=== PATIENT | female | born 1945 ===

== ENCOUNTER 2021-01-20 22:02 | Emergency (ER) | payer OTHER ==
--- NOTE | 2021-01-20 22:49 | ER ---
Nurse's Notes [facility] Name: Gwendolyn Morel Age: 75 yrs Sex: Female : 1945 Arrival Date: 01/20/2021 Time: 22:06 Bed Waiting Private MD: Diagnosis: ED Course: 01/20 22:06 Patient arrived in ED. bp1 Administered Medications: No medications were administered Outcome: 22:49 Patient left the ED. ld1 Signatures: Grace Cramer bp1 Vira Coronado, RN RN ld1
== END 2021-01-20 22:49 | disposition left against medical advice (07) ==
LOC: ER 22:02
DX: Z02.9 Encounter for administrative examinations, unspecified (principal)

== ENCOUNTER 2021-01-22 18:58 | Inpatient (IN) | payer OTHER ==
[2021-01-22 21:07] LABS: Absolute Lymphocytes (CBC) 1.8 K/uL (0.7-4.9); Basophils % 1.2 % (0-1.3); Hematocrit 35.8 % (36.0-45.0); Lymphocytes % 25.1 % (15.3-44.8); MPV 7.2 fL (7.6-11.3)
[2021-01-22 21:10] LABS: Protime INR 0.95
[2021-01-22] MEDS ORDERED: LIDOCAINE VISCOUS 2% SOLN 15 ML UDC ONE (21:13)
[2021-01-22] MEDS ORDERED: MAGNES/ALUMIN/SIMET 30ML UCUP ONE (21:13)
[2021-01-22 21:25] LABS: ALT/SGPT 16 U/L (12-78); AST/SGOT 18 U/L (15-37); Albumin 3.2 g/dL (3.4-5.0); Alkaline Phosphatase 81 U/L (45-117); BUN Blood Urea Nitrogen 29 mg/dL (7-18); Bicarbonate 23 mmol/L (21-32); Bilirubin Direct < 0.1 mg/dL (0-0.2); Bilirubin Total 0.3 mg/dL (0.2-1.0); Glucose Level 101 mg/dL (74-106); Lipase 232 U/L (73-393); Magnesium 2.6 mg/dL (1.8-2.4); Potassium 4.4 mmol/L (3.5-5.1); Protein, Total 7.3 g/dL (6.4-8.2); Sodium Level 143 mmol/L (136-145)
[2021-01-22 21:26] LABS: NT PRO-BNP 576 pg/mL (<450); Troponin (Emerg Dept Use Only) < 0.02 ng/mL (0.0-0.045)
--- NOTE | 2021-01-22 21:52 | RAD REPORT ---
EXAM DESCRIPTION: RAD - Chest Single View - 01/22/2021 9:35 pm CLINICAL HISTORY: upper abdomen pain Chest pain. COMPARISON: Chest Single View dated 01/27/2016 FINDINGS: Portable technique limits examination quality. The lungs are mildly emphysematous but grossly clear. The heart is normal in size. No displaced fract ures. IMPRESSION: No acute intrathoracic process suspected.
--- NOTE | 2021-01-22 23:25 | EDPHYS ---
Physician Documentation [facility] Name: Gwendolyn Morel Age: 75 yrs Sex: Female : 1945 Arrival Date: 01/22/2021 Time: 19:02 Bed 25 Private MD: ED Physician Sahil Johnson HPI: 01/22 20:45 This 75 yrs old Female presents to ER via Wheelchair with complaints of Epigastric Pain.cp 20:45 The patient presents with abdominal pain in the upper abdomen. cp 20:45 Onset: The symptoms/episode began/occurred 3 day(s) ago. The symptoms do not radiate. cp Associated signs and symptoms: Pertinent positives: nausea and vomiting, Pertinent negatives: chest pain, constipation, diarrhea, fever. Historical: - Allergies: 19:34 No Known Allergies; vg1 - Home Meds: 19:34 levothyroxine oral [Active]; Mirtazapine Oral [Active]; pantoprazole oral [Active]; vg1 - PMHx: 19:34 stomach hernia; Gastritis; vg1 - PSHx: 19:34 None; vg1 - Immunization history:: Client reports receiving the 2nd dose of the Covid vaccine. - Social history:: Smoking status: Patient denies any tobacco usage or history of. ROS: 20:50 Constitutional: Negative for body aches, chills, fever, poor PO intake. cp 20:50 Eyes: Negative for injury, pain, redness, and discharge. cp 20:50 ENT: Negative for ear pain, sore throat, difficulty swallowing, difficulty handling secretions. 20:50 Cardiovascular: Negative for chest pain, palpitations. 20:50 Respiratory: Negative for cough, shortness of breath, wheezing. 20:50 Abdomen/GI: Positive for abdominal pain, nausea and vomiting, Negative for diarrhea, constipation, hematemesis, black/tarry stool, rectal bleeding. 20:50 Back: Negative for radiated pain. 20:50 : Negative for urinary symptoms. 20:50 Neuro: Negative for altered mental status, dizziness, syncope, weakness. 20:50 All other systems are negative. Exam: 20:55 Constitutional: The patient appears in no acute distress, alert, awake, cp non-diaphoretic, non-toxic, well developed, well nourished, uncomfortable. 20:55 Head/Face: Normocephalic, atraumatic. cp 20:55 Eyes: Periorbital structures: appear normal, Conjunctiva: normal, no exudate, no injection, Sclera: no appreciated abnormality, Lids and lashes: appear normal, bilaterally. 20:55 ENT: External ear(s): are unremarkable, Nose: is normal, Mouth: Lips: moist, Oral mucosa: moist, Posterior pharynx: Airway: no evidence of obstruction, patent. 20:55 Chest/axilla: Inspection: normal, Palpation: is normal, no crepitus, no tenderness. 20:55 Cardiovascular: Rate: normal, Rhythm: regular, Edema: is not appreciated, JVD: is not appreciated. 20:55 Respiratory: the patient does not display signs of respiratory distress, Respirations: normal, no use of accessory muscles, no retractions, labored breathing, is not present, Breath sounds: are clear throughout, no decreased breath sounds, no stridor, no wheezing. 20:55 Abdomen/GI: Inspection: abdomen appears normal, Bowel sounds: active, all quadrants, Palpation: soft, in all quadrants, moderate abdominal tenderness, in the epigastric area, right upper quadrant and left upper quadrant, rebound tenderness, is not appreciated, voluntary guarding, is not appreciated, involuntary guarding, is not appreciated. 20:55 Back: pain, is absent, ROM is normal. 20:55 Skin: no rash present. 20:55 Neuro: Orientation: to person, place \\T\\ time. Mentation: is normal, Motor: moves all fours, strength is normal, Sensation: is normal. 21:25 ECG was reviewed by the Attending Physician. cp Vital Signs: 19:29 BP 134 / 72; Pulse 83; Resp 18; Temp 98.1; Pulse Ox 100% ; Weight 49.9 kg; Height 5 ft. vg1 1 in. (154.94 cm); Pain 10/10; 21:25 BP 178 / 75; Pulse 61; Resp 18; Pulse Ox 99% on R/A; em 01/23 02:13 BP 168 / 85; Pulse 58; Resp 18; Pulse Ox 99% on R/A; em 01/22 19:29 Body Mass Index 20.78 (49.90 kg, 154.94 cm) vg1 MDM: 01/22 20:20 Patient medically screened. cp 23:30 Data reviewed: vital signs, nurses notes, lab test result(s), EKG, radiologic studies, cp CT scan. 23:30 Test interpretation: by ED physician or midlevel provider: ECG, plain radiologic cp studies. Counseling: I had a detailed discussion with the patient and/or guardian regarding: the historical points, exam findings, and any diagnostic results supporting the discharge/admit diagnosis, lab results, radiology results, the need for further work-up and treatment in the hospital. Response to treatment: the patient's symptoms have markedly improved after treatment, and as a result, I will admit patient. Physician consultation: Marco Traore MD was contacted at 23:20, regarding admission, to the telemetry unit. patient's condition. Admission orders: after a detailed discussion of the patient's condition and case, the admit orders are written by me. 01/22 20:29 Order name: Basic Metabolic Panel; Complete Time: 21:35 cp 01/22 21:35 Interpretation: Normal except: CL 112; BUN 29; CRE 1.37; GFR 38. cp 01/22 20:29 Order name: CBC with Diff; Complete Time: 21:35 cp 01/22 21:35 Interpretation: Normal except: HGB 11.7; HCT 35.8; MPV 7.2; EOSINOPHIL % 5.5. cp 01/22 20:29 Order name: LFT's; Complete Time: 21:35 cp 01/22 20:29 Order name: Magnesium; Complete Time: 21:35 cp 01/22 20:29 Order name: NT PRO-BNP; Complete Time: 21:35 cp 01/22 20:29 Order name: PT-INR; Complete Time: 21:35 cp 01/22 20:29 Order name: Troponin (emerg Dept Use Only); Complete Time: 21:35 cp 01/22 20:29 Order name: Lipase; Complete Time: 21:35 cp 01/22 21:38 Order name: Urine Microscopic Only cp 01/22 23:32 Order name: Basic Metabolic Panel EDMS 01/22 23:32 Order name: Basic Metabolic Panel EDMS 01/22 23:32 Order name: CBC with Automated Diff EDMS 01/22 23:32 Order name: CBC with Automated Diff EDMS 01/22 20:29 Order name: XRAY Chest (1 view); Complete Time: 22:09 cp 01/22 21:38 Order name: CT Abd/Pelvis - Without Contrast cp 01/22 23:07 Order name: US Abdomen Limited: RUQ cp 01/22 23:32 Order name: Lipase [facility] 01/22 23:32 Order name: Lipase [facility] 01/22 23:32 Order name: Liver (Hepatic) Function EDMS 01/22 23:33 Order name: Liver (Hepatic) Function [facility] 01/22 23:33 Order name: SARS-COV-2 RT PCR [facility] 01/23 01:08 Order name: COVID-19 (Coronavirus) Document "Date of Onset" if Symptomatic em 01/23 01:23 Order name: CORONAVIRUS [facility] 01/23 02:27 Order name: SARS-COV-2 RT PCR [facility] 01/23 02:49 Order name: COVID-19 (Coronavirus) Document "Date of Onset" if Symptomatic mw2 01/23 02:55 Order name: CORONAVIRUS [facility] 01/23 03:37 Order name: SARS-COV-2 RT PCR [facility] 01/23 07:57 Order name: US [facility] 01/23 11:34 Order name: Urine Dipstick-Ancillary [facility] 01/22 20:29 Order name: EKG; Complete Time: 20:30 cp 01/22 20:29 Order name: Cardiac monitoring; Complete Time: 21:29 cp 01/22 20:29 Order name: EKG - Nurse/Tech; Complete Time: 21:29 cp 01/22 20:29 Order name: IV Saline Lock; Complete Time: 21:29 cp 01/22 20:29 Order name: Labs collected and sent; Complete Time: 21:29 cp 01/22 20:29 Order name: O2 Per Protocol; Complete Time: 21:28 cp 01/22 20:29 Order name: O2 Sat Monitoring; Complete Time: 21:28 cp 01/22 21:38 Order name: Urine Dipstick-Ancillary (obtain specimen); Complete Time: 11:43 cp 01/22 23:25 Order name: NPO; Complete Time: 23:29 cp 01/22 23:32 Order name: NPO EDMS EC:25 Rate is 61 beats/min. Rhythm is regular. MT interval is normal. QRS interval is normal. cp QT interval is normal. T waves are Inverted in lead aVR. Interpreted by me. Reviewed by me. Administered Medications: 21:47 Drug: GI Cocktail without - (Maalox Suspension 30 ml, Lidocaine Liquid 2 % 15 em ml) Route: PO; 23:21 Follow up: Response: No adverse reaction em 01/23 00:07 Drug: Zosyn (piperacillin-tazobactam) 3.375 grams Route: IVPB; Infused Over: 60 mins; em Site: right forearm; 02:30 Follow up: IV Status: Completed infusion; IV Intake: 100ml em 05:43 Not Given (0/10 painn): morphine 2 mg IVP once; (PAIN>8) RASS on ADMN: Combtv4, Very em Agttd3, Agttd2, Rstlss1, AlertClm0, Drwsy-1, LtSdtn-2, ModSdtn-3, DpSdtn-4, UnArsble-5 x2 Disposition: 19:09 Co-signature as Attending Physician, Sahil Johnson MD. 7 Disposition Summary: 01/22/21 23:24 Hospitalization Ordered Hospitalization Status: Inpatient Admission cp Provider: Marco Traore cp Condition: Stable cp Problem: new cp Symptoms: have improved cp Bed/Room Type: Standard cp Location: Telemetry/MedSurg (Inpatient)(01/23/21 13:25) bd Room Assignment: 216(01/23/21 13:25) bd Diagnosis - Calculus of gallbladder with acute cholecystitis without obstruction cp Forms: - Medication Reconciliation Form cp - SBAR form cp Signatures: Dispatcher [employer] [facility] Mariama Marmolejo Hermelinda Kc RN RN Syd Garcia RN RN em Hunter Vu, HAND VIOLIN MAKER-C HAND VIOLIN MAKER-Cla1 John Pepe PA PA cp Garcia, Victoria, RN RN vg1 Sahil Johnson MD MD mh7 Corrections: (The following items were deleted from the chart) 01/22 23:32 23:22 CORONAVIRUS+ ordered. [facility] 01/23 00:36 01/22 23:24 Telemetry/MedSurg (Inpatient) [facility] 01/23 00:36 01/22 23:24 [facility] 01/23 02:58 00:36 Intensive Care Unit mw mw 02:58 00:36 7- mw mw 13:25 02:58 [facility] ER HOLD mw bd 13:25 02:58 ERHOLD- mw bd
--- NOTE | 2021-01-22 23:25 | ER ---
Nurse's Notes [facility] Name: Gwendolyn Morel Age: 75 yrs Sex: Female : 1945 Arrival Date: 01/22/2021 Time: 19:02 Bed 25 Private MD: Diagnosis: Calculus of gallbladder with acute cholecystitis without obstruction Presentation: 01/22 19:29 Chief complaint: Patient's son or daughter states: Upper ABD pain that began on vg1 01/20/21. [place] denies diarrhea. Last BM was today, pt states normal. Coronavirus screen: Vaccine status: Patient reports receiving the 2nd dose of the covid vaccine. Client denies travel out of the [place] in the last 14 days. Ebola Screen: Patient negative for fever greater than or equal to 101.5 degrees Fahrenheit, and additional compatible Ebola Virus Disease symptoms. Initial Sepsis Screen: Does the patient meet any 2 criteria? No. Patient's initial sepsis screen is negative. Does the patient have a suspected source of infection? No. Patient's initial sepsis screen is negative. Risk Assessment: Do you want to hurt yourself or someone else? Patient reports no desire to harm self or others. Onset of symptoms was January 20, 2021. 19:29 Method Of Arrival: Wheelchair vg1 19:29 Acuity: CHIDI 3 vg1 Triage Assessment: 19:34 General: Appears in no apparent distress. uncomfortable, Behavior is calm, cooperative. vg1 Pain: Complains of pain in epigastric area, right upper quadrant and left upper quadrant Pain currently is 10 out of 10 on a pain scale. Pain began 2-3 days ago. GI: Abdomen is Abd is soft Abdomen is tender to palpation in right upper quadrant and left upper quadrant. Historical: - Allergies: 19:34 No Known Allergies; vg1 - Home Meds: 19:34 levothyroxine oral [Active]; Mirtazapine Oral [Active]; pantoprazole oral [Active]; vg1 - PMHx: 19:34 stomach hernia; Gastritis; vg1 - PSHx: 19:34 None; vg1 - Immunization history:: Client reports receiving the 2nd dose of the Covid vaccine. - Social history:: Smoking status: Patient denies any tobacco usage or history of. Screenin:44 Abuse screen: Denies threats or abuse. Nutritional screening: No deficits noted. em Tuberculosis screening: No symptoms or risk factors identified. Fall Risk None identified. Assessment: 20:50 General: Appears in no apparent distress. comfortable, Behavior is calm, cooperative, em appropriate for age. Pain: Complains of pain in left upper quadrant and right upper quadrant Pain currently is 10 out of 10 on a pain scale. Pain began 2-3 days ago. Neuro: Level of Consciousness is awake, alert, obeys commands, Oriented to person, place, time, situation. Cardiovascular: Capillary refill < 3 seconds Patient's skin is warm and dry. Respiratory: Airway is patent Respiratory effort is even, unlabored, Respiratory pattern is regular, symmetrical. GI: Abdomen is flat, Abd is soft and non tender X 4 quads. Reports upper abdominal pain. Derm: Skin is intact, is healthy with good turgor, Skin is pink, warm \T\ dry. Musculoskeletal: Capillary refill < 3 seconds, Range of motion: intact in all extremities. 23:00 Reassessment: Patient appears in no apparent distress at this time. Patient and/or em family updated on plan of care and expected duration. Pain level reassessed. Patient is alert, oriented x 3, equal unlabored respirations, skin warm/dry/pink. Patient denies pain at this time. Patient states feeling better. 01/23 01:00 Reassessment: pt request to repeat covid swab, pt has zero symptoms, data warehouse analyst em and provider notified, will repeat swab. 02:13 Reassessment: Patient appears in no apparent distress at this time. Patient and/or em family updated on plan of care and expected duration. Pain level reassessed. Patient is alert, oriented x 3, equal unlabored respirations, skin warm/dry/pink. Vital Signs: 01/22 19:29 BP 134 / 72; Pulse 83; Resp 18; Temp 98.1; Pulse Ox 100% ; Weight 49.9 kg; Height 5 ft. vg1 1 in. (154.94 cm); Pain 10/10; 21:25 BP 178 / 75; Pulse 61; Resp 18; Pulse Ox 99% on R/A; em 01/23 02:13 BP 168 / 85; Pulse 58; Resp 18; Pulse Ox 99% on R/A; em 01/22 19:29 Body Mass Index 20.78 (49.90 kg, 154.94 cm) vg1 ED Course: 01/22 19:02 Patient arrived in ED. wm 19:34 Triage completed. vg1 19:34 Arm band placed on. vg1 20:16 John Pepe PA is PHCP. cp 20:16 Sahil Johnson MD is Attending Physician. cp 20:18 Syd Garcia, RN is Primary Nurse. em 20:44 Patient has correct armband on for positive identification. em 20:57 Initial lab(s) drawn, by me, sent to lab. Inserted saline lock: 22 gauge in right em forearm, using aseptic technique. Blood collected. 21:34 XRAY Chest (1 view) In Process Unspecified. EDMS 22:18 CT Abd/Pelvis - Without Contrast In Process Unspecified. EDMS 23:23 Marco Traore MD is Hospitalizing Provider. cp Administered Medications: 21:47 Drug: GI Cocktail without - (Maalox Suspension 30 ml, Lidocaine Liquid 2 % 15 em ml) Route: PO; 23:21 Follow up: Response: No adverse reaction em 01/23 00:07 Drug: Zosyn (piperacillin-tazobactam) 3.375 grams Route: IVPB; Infused Over: 60 mins; em Site: right forearm; 02:30 Follow up: IV Status: Completed infusion; IV Intake: 100ml em 05:43 Not Given (0/10 painn): morphine 2 mg IVP once; (PAIN>8) RASS on ADMN: Combtv4, Very em Agttd3, Agttd2, Rstlss1, AlertClm0, Drwsy-1, LtSdtn-2, ModSdtn-3, DpSdtn-4, UnArsble-5 x2 Intake: 02:30 IV: 100ml; Total: 100ml. em Outcome: 01/22 23:24 Decision to Hospitalize by Provider. cp 01/23 14:22 Patient left the ED. aa5 Signatures: Dispatcher [employer] Syd Dos Santos, RN RN em Chuyita Perez RN RN aa5 John Pepe PA PA cp April Scott RN RN 1 Mel Sanchez
[2021-01-22] MEDS ORDERED: NA CHLORIDE 0.9% 100 ML ONE (23:29)
[2021-01-22] MEDS ORDERED: MORPHINE 4 MG/ML SYR IV PRN (23:30)
[2021-01-22] MEDS ORDERED: ACETAMINOPHEN 500 MG TAB PO PRN (23:30)
[2021-01-22] MEDS ORDERED: ONDANSETRON 4 MG/2 ML VIAL IV PRN (23:30)
[2021-01-22] MEDS ORDERED: PIPERACIL/TAZO 3.375 GM VIAL IV ONE (23:30)
[2021-01-22] MEDS: D5 0.45 NS 1,000 ML IV SCH (23:45)
[2021-01-23] MEDS: D5 0.45 NS 1,000 ML IV SCH (04:00)
[2021-01-23 04:42] LABS: Absolute Lymphocytes (CBC) 1.8 K/uL (0.7-4.9); Basophils % 1.1 % (0-1.3); Hematocrit 34.6 % (36.0-45.0); Lymphocytes % 25.7 % (15.3-44.8)
[2021-01-23 04:51] VITALS: BMI 20.8
[2021-01-23] MEDS ORDERED: D5 0.45 NS 1,000 ML IV ONE (04:52)
[2021-01-23 05:09] LABS: Bilirubin Direct 0.2 mg/dL (0-0.2); Bilirubin Total 0.6 mg/dL (0.2-1.0); Potassium 4.2 mmol/L (3.5-5.1); Protein, Total 7.2 g/dL (6.4-8.2)
--- NOTE | 2021-01-23 07:56 | RAD REPORT ---
EXAM DESCRIPTION: US - Abdomen Exam Limited - 01/23/2021 12:22 am CLINICAL HISTORY: upper abdomen pain Preliminary findings were provided at the time of the study. COMPARISON: Abdomen Pelvis Wo Contrast dated 01/22/2021 FINDINGS: A 10 millimeter gallstone is identified in stays fixed near the gallbladder neck. Addition al sludge in much smaller stones are identifiable within the lumen. Gallbladder wall is thickened wit h no pericholecystic fluid confirmed. Common bile duct is 6 mm which is still normal range. No duct stone was identifiable. IMPRESSION: Stones and sludge are identified including a 10 mm stone fixed at the neck of the gallbl adder. Gallbladder wall is thickened without pericholecystic fluid. No biliary tree abnormality identified. Findings are compatible with cholecystitis and need correlation with clinical presentation.
[2021-01-23] MEDS ORDERED: PIPER TAZO 3.375 GM in NA CHLORIDE 0.9% 100 ML IV SCH (08:00)
[2021-01-23] MEDS ORDERED: PIPERACIL/TAZO 2.25 GM VIAL IV ONE (08:07)
[2021-01-23] MEDS ORDERED: NA CHLORIDE 0.9% 100 ML ONE (08:07)
[2021-01-23] MEDS: PIPER TAZO 2.25 GM in NA CHLORIDE 0.9% 50 ML IV SCH ×3 (08:30→17:02)
[2021-01-23 11:34] LABS: Urine Blood 1+ (Negative); Urine Glucose Negative (Negative); Urine Protein Negative (Negative); Urine Specific Gravity 1.015 (1.005-1.030)
[2021-01-23 12:14] LABS: Urine Bacteria <20 /HPF (<20)
[2021-01-23] MEDS ORDERED: BUPIVACAINE 0.5% PF 10 ML VIAL ONE (12:15)
[2021-01-23] MEDS ORDERED: LIDOCAINE 2% MPF 5 ML VIAL ONE (12:25)
[2021-01-23] MEDS ORDERED: propofoL 200 MG/20 ML VIAL IV ONE (12:25)
[2021-01-23] MEDS ORDERED: ROCURONIUM 50 MG/5 ML VIAL IV ONE (12:25)
[2021-01-23] MEDS ORDERED: FENTANYL CITR 100 MCG/2 ML ONE (12:25)
[2021-01-23] MEDS ORDERED: Ringers Lactate 1,000 ML IV ONE (12:29)
--- NOTE | 2021-01-23 12:40 | P.HP ---
Date of Service: 01/23/21 PC: This 75-year-old female presented to the emergency room with severe right upper quadrant abdominal pain for diagnosis and treatment. HPC: Patient has had the pain for 2 to 3 days. Pain has intensified and she could no longer bear it at home. Has been causing her nausea, no vomiting or diarrhea. PSHx: PMHx: Negative Social Hx: No known allergies Sys R: Otherwise healthy female [does not understand Greek, her son is translating] no cough, wheeze, shortness of breath. No chest pain or palpitations. No urinary complaints O/E: Awake alert vital signs are stable HEENT: Nonicteric Chest: Chest movement equal bilaterally Abd: Tender in the right upper quadrant [place]: Intact Data: As documented gallstones on CT and ultrasound. The stone appears to be stuck in the neck of the gallbladder. Impression: Cholecystitis with cholelithiasis, biliary colic Plan: I will taken the operative room for laparoscopic possible open cholecystectomy with a cholangiogram. The risks of this procedure have been discussed with the patient's family. The possibility of bleeding, infection, injury to bile ducts blood vessels and intestines has been described. The possible need for open and/or further surgeries and procedures was discussed. They understand and want to proceed.
[2021-01-23] MEDS ORDERED: KETOROLAC 30 MG/ML INJ ONE (13:02)
[2021-01-23] MEDS ORDERED: dexAMETHasone 10 MG/ML VIAL ONE (13:02)
[2021-01-23] MEDS ORDERED: ONDANSETRON 4 MG/2 ML VIAL ONE (13:02)
[2021-01-23] MEDS ORDERED: GLYCOPYRROLATE 0.2 MG/ML SYR ONE ×2 (13:15→13:44)
[2021-01-23] MEDS ORDERED: HYDRALAZINE HCL 20 MG/ML VIAL ONE (13:25)
[2021-01-23] MEDS ORDERED: NEOSTIGMINE 1 MG/ML -5 ML ONE (13:44)
[2021-01-23] MEDS: MORPHINE 4 MG/ML SYR ONE ×2 (14:06→14:13)
[2021-01-23] MEDS ORDERED: ONDANSETRON 4 MG/2 ML VIAL IV PRN (14:50)
[2021-01-23] MEDS ORDERED: HYDROCODONE/APAP 7.5/325 MG TAB PO PRN (14:50)
--- NOTE | 2021-01-23 14:51 | P.OP ---
Preoperative diagnosis: Acute on chronic cholecystitis with cholelithiasis, biliary colic Postoperative diagnosis: The same Primary procedure: Laparoscopic cholecystectomy Secondary procedure: Intraoperative cholangiogram Other procedure(s): Meghann block Anesthesia: General Estimated blood loss: Less than 10 cc Specimen: 1 gallbladder and contents Operative Technique: The patient brought the operating room placed supine on the table. After the induction of adequate general endotracheal anesthesia, there the abdomen was prepped with a DuraPrep solution, and she was draped in the usual aseptic manner. A subumbilical incision was made. This was brought down through the skin and subcutaneous tissue. The Visiport was used to enter the peritoneal cavity and created pneumoperitoneum to approximately 12 mmHg. Patient was placed in reverse Trendelenburg and the bed tilted to the left. We were now able to visualize the right upper quadrant. 2 5 mm trochars were now placed on the right lateral side of the abdomen, and one in the upper midline. We could see a distended and acutely inflamed gallbladder. There was omentum adherent to the serosal surface of the gallbladder itself. These adhesions were gently taken down using blunt and sharp dissection. The gallbladder was tense and we were able to aspirate his contents we could place a grasper more easily upon it. With a grasper on the body and another down by Bueno's pouch, after applying lateral traction were able to dissect out and expose the cystic duct and artery. Having obtained the critical view a clip was placed between the gallbladder and the cystic duct. An opening was made into the cystic duct which we attempted to take a intraoperative cholangiogram. I tried to pass this catheter there was a marked amount of valgus in the area of the cystic duct. We read incised the duct at the spiral valve was unrelenting we could not thread the catheter. At this point this portion of the procedure was abandoned. Attention was turned back to the cystic duct. It was now secured with 2 clips and the duct was transected. The artery was dealt with in a similar fashion. The gallbladder was now dissected free from the liver bed. At 1 point we found the aberrant vessel which was clipped as well before dividing it. The gallbladder having been fully removed from the liver was placed into an Endo Catch and brought out through the umbilical port site. Attention was turned back towards the anterior abdominal wall. A tap block was performed using 0.25% Marcaine. The umbilical trocar site was approximated using 2 interrupted sutures of absorbable suture placed using the Endo Close. At this point the pneumoperitoneum was collapsed, the sutures tied, and saud applied to the skin. At the end of the procedure she was stable and sent to the recovery room. Needle sponge and instrument count were correct. No drains were placed. Complications: None Transferred to: Recovery Room Condition: Good
[2021-01-23] MEDS ORDERED: Ringers Lactate 1,000 ML IV SCH (15:00)
--- NOTE | 2021-01-23 15:10 | RAD REPORT ---
EXAM DESCRIPTION: EXAM DESCRIPTION: Abdomen Pelvis Wo Contrast RadLex: CT ABDOMEN PELVIS WITHOUT IV CONTRAST CLINICAL HISTORY: ABD PAIN. COMPARISON: CT of the abdomen and pelvis before and after intravenous contrast from December 30, 2020 . TECHNIQUE: Serial axial CT images were obtained from above the diaphragm through the pubic symphysis without administration of intravenous or oral contrast. All CT scans are performed using dose optimization techniques as appropriate, including automated exp osure control and/or standardized protocols, where dose is adjusted for indication for exam and body habitus. FINDINGS: Thoracic: Trace pericardial effusion. Hepatobiliary: No obvious concerning hepatic lesion identified in the absence of intravenous contrast . Calcified gallstones, including one at the gallbladder neck which measures 1.1 cm. There is mild di ffuse gallbladder wall thickening measuring up to 0.4 cm, with trace adjacent fat stranding. Mildly p rominent common bile duct, measuring up to 0.7 cm in diameter, with smooth tapering to the ampulla. N o intrahepatic biliary ductal dilatation. Pancreas: Unremarkable. Spleen: Unremarkable. Gastrointestinal: No evidence of bowel obstruction or perienteric inflammation. The appendix is migdalia l. Small to moderate amount of fecal material throughout the colon. Adrenals: No abnormality identified in either adrenal gland. Renal: No obvious parenchymal abnormality in either kidney in the absence of intravenous contrast. No hydronephrosis or urolithiasis. Right-sided extrarenal pelvis. Bladder/Reproductive: Unremarkable appearance of the urinary bladder by CT technique. Unremarkable CT appearance of the uterus and ovaries. Vascular/Lymphatics: No lymphadenopathy identified by CT size criteria. Mild calcific atherosclerosis . Abdominal aorta is normal in caliber. Musculoskeletal: No concerning osseous lesion identified. Osteopenia. Moderate disc and endplate dege nerative changes at L5-S1. Fluid / peritoneum: No significant free fluid. No free intraperitoneal air identified. IMPRESSION: 1. Findings suggestive of acute cholecystitis. 2. Mildly prominent common bile duct, with smooth tapering to the ampulla. No intrahepatic biliary ductal dilatation. This can be correlated with LFTs. Electronically signed by: Jessica Jarrell MD 01/22/2021 10:32 PM [employer] Due to temporary technical issues with the PACS/Fluency reporting system, reports are being signed by the in house radiologists without review as a courtesy to insure prompt reporting. The interpreting radiologist is fully responsible for the content of the report.
[2021-01-23 22:51] VITALS: O2SAT 98
[2021-01-24] MEDS ORDERED: HYDRALAZINE HCL 20 MG/ML VIAL IV PRN ×2 (00:36→00:46)
--- NOTE | 2021-01-24 00:52 | P.CNS ---
Date of Consult: 01/24/21 Reason for Consult: Medical management Requesting Physician: Marco Traore Chief Complaint: Epigastric pain History of Present Illness: 75-year-old female with history of gastritis, hypothyroidism presented to the emergency department yesterday for epigastric pain. Patient was evaluated in the emergency department found to have acute cholecystitis, patient was then admitted to general surgery who performed laparoscopic cholecystectomy today. Surgery was performed without complications and patient was being observed in the hospital for the evening. I received a phone call from the nursing staff this evening that patient was significantly hypertensive in general surgery wished for hospitalist consult for medical management. Patient without known history of hypertension, not on any blood pressure medication at home, blood pressure currently 190/90, patient not having any pain at this time although she does report some mild dizziness. I have ordered patient received hydralazine IV as needed as well as initiated amlodipine 5 mg p.o. daily. Will titrate and adjust dosing as necessary. Allergies No Known Allergies Allergy (Unverified 01/27/16 23:57) Home Medications: Levothyroxine [Synthroid*] 0.075 mg PO [id number] #30 tab 01/31/16 Mirtazapine [Remeron] 15 mg PO BEDTIME 01/23/21 Pantoprazole Sodium [Protonix] 40 mg PO DAILY 01/23/21 - Past Medical/Surgical History -: abdominal hernia -: Gastritis -: Hypothyroidism -: Cholecystectomy Psychosocial/ Personal History: Patient lives at home with family - Family History Mother Family History: Reviewed- Non-Contributory - Social History Smoking Status: Never smoker Alcohol use: No CD- Drugs: No Caffeine use: Yes Place of Residence: Home Review of Systems 10-point ROS is otherwise unremarkable Physical Examination Temp Pulse Resp BP Pulse Ox 98.1 F 86 18 193/80 H 94 01/24/21 00:00 01/24/21 00:44 01/24/21 00:00 01/24/21 00:44 01/24/21 00:00 General: Alert, In no apparent distress, Oriented x3 HEENT: Atraumatic, PERRLA, Mucous membr. moist/pink, EOMI, Sclerae nonicteric Neck: Supple, 2+ carotid pulse no bruit, No LAD, Without JVD or thyroid abnormality Respiratory: Clear to auscultation bilaterally, Normal air movement Cardiovascular: Regular rate/rhythm, Normal S1 S2 Gastrointestinal: Normal bowel sounds, No tenderness Musculoskeletal: No tenderness Integumentary: No rashes Neurological: Normal gait, Normal speech, Normal tone, Normal affect Lymphatics: No axilla or inguinal lymphadenopathy Conclusions/Impression: Assessment: Acute cholecystitis status post laparoscopic cholecystectomy on 12/23/2020 Hypertension suspect underlying primary hypertension History of gastritis Hypothyroidism Plan: Acute cholecystitis status post laparoscopic cholecystectomy on 12/23/2020: Further management by general surgery, anticipate discharge tomorrow if patient is without significant pain and tolerating diet. No noted complications from surgical procedure. Pain is well tolerated at this point. Hypertension suspect underlying primary hypertension: Blood pressure around 190/90, patient is not on any blood pressure medications at home. Given as needed hydralazine and initiated on amlodipine 5 mg p.o. daily. This can be adjusted further as necessary. History of gastritis: Continue home medication Protonix Hypothyroidism: Continue levothyroxine DVT PPX: Per surgery Code status: Full code Critical Care: No Time Spent Managing Pts care (In Minutes): 30
[2021-01-24] MEDS: PIPER TAZO 2.25 GM in NA CHLORIDE 0.9% 50 ML IV SCH ×3 (00:58→12:32)
[2021-01-24] MEDS ORDERED: LEVOTHYROXINE SOD 0.075 MG TAB PO SCH (06:00)
--- NOTE | 2021-01-24 06:05 | P.PN ---
Subjective Date of Service: 01/24/21 Primary Care Provider: Dr. Alonzo Chief Complaint: Epigastric pain Subjective: Improving, Doing well Physical Examination - Vital Signs Temperature: 98.2 F Blood Pressure: 103/47 Pulse: 71 Respirations: 16 Pulse Ox (%): 98 Assessment & Plan Discharge Plan: Home Plan to discharge in: 24 Hours Physician Review Additional Text: COVID: Negative ABUS: COMPARISON: Abdomen Pelvis Wo Contrast dated 01/22/2021 FINDINGS: A 10 millimeter gallstone is identified in stays fixed near the gallbladder neck. Additional sludge in much smaller stones are identifiable within the lumen. Gallbladder wall is thickened with no pericholecystic fluid confirmed. Common bile duct is 6 mm which is still normal range. No duct stone was freddy ntifiable. IMPRESSION: Stones and sludge are identified including a 10 mm stone fixed at the neck of the gallbladder. Gallbladder wall is thickened without pericholecystic fluid. No biliary tree abnormality identified. Findings are compatible with cholecystitis and need correlation with clinical presentation. CT scan: COMPARISON: CT of the abdomen and pelvis before and after intravenous contrast from December 30, 2020. TECHNIQUE: Serial axial CT images were obtained from above the diaphragm through the pubic symphysis without administration of intravenous or oral contrast. All CT scans are performed using dose optimization techniques as appropriate, including automated exposure control and/or standardized protocols, where dose is adjusted for indication for exam and body habitus. FINDINGS: Thoracic: Trace pericardial effusion. Hepatobiliary: No obvious concerning hepatic lesion identified in the absence of intravenous contrast. Calcified gallstones, including one at the gallbladder neck which measures 1.1 cm. There is mild diffuse gallbladder wall thickening measuring up to 0.4 cm, with trace adjacent fat stranding. Mildly prominent common bile duct, measuring up to 0.7 cm in diameter, with smooth tapering to the ampulla. No intrahepatic biliary ductal dilatation. Pancreas: Unremarkable. Spleen: Unremarkable. Gastrointestinal: No evidence of bowel obstruction or perienteric inflammation. The appendix is normal. Small to moderate amount of fecal material throughout the colon. Adrenals: No abnormality identified in either adrenal gland. Renal: No obvious parenchymal abnormality in either kidney in the absence of intravenous contrast. No hydronephrosis or urolithiasis. Right-sided extrarenal pelvis. Bladder/Reproductive: Unremarkable appearance of the urinary bladder by CT technique. Unremarkable CT appearance of the uterus and ovaries. Vascular/Lymphatics: No lymphadenopathy identified by CT size criteria. Mild calcific atherosclerosis. Abdominal aorta is normal in caliber. Musculoskeletal: No concerning osseous lesion identified. Osteopenia. Moderate disc and endplate degenerative changes at L5-S1. Fluid / peritoneum: No significant free fluid. No free intraperitoneal air identified. IMPRESSION: 1. Findings suggestive of acute cholecystitis. 2. Mildly prominent common bile duct, with smooth tapering to the ampulla. No intrahepatic biliary ductal dilatation. This can be correlated with LFTs. Surgery: Date: 01/23/21 14:47 Preoperative diagnosis: Acute on chronic cholecystitis with cholelithiasis, biliary colic Postoperative diagnosis: The same Primary procedure: Laparoscopic cholecystectomy Secondary procedure: Intraoperative cholangiogram Other procedure(s): Meghann block Anesthesia: General Estimated blood loss: Less than 10 cc Specimen: 1 gallbladder and contents Physical Exam: General: Alert, In no apparent distress, Oriented x3 HEENT: Atraumatic, PERRLA, Mucous membr. moist/pink, EOMI, Sclerae nonicteric Neck: Supple, 2+ carotid pulse no bruit, No LAD, Without JVD or thyroid abnormality Respiratory: Clear to auscultation bilaterally, Normal air movement Cardiovascular: Regular rate/rhythm, Normal S1 S2 Gastrointestinal: Normal bowel sounds, No tenderness Musculoskeletal: No tenderness Integumentary: No rashes Neurological: Normal gait, Normal speech, Normal tone, Normal affect Lymphatics: No axilla or inguinal lymphadenopathy Impression: Acute cholecystitis status post laparoscopic cholecystectomy on 12/23/2020 Elevated blood pressure with new diagnosis of hypertension GERD Hypothyroidism Plan: Acute cholecystitis status post laparoscopic cholecystectomy on 12/23/2020: Patient doing well at this time. Anticipate home discharge if patient able to tolerate her diet today. Patient to be taught postoperative changes. Patient will follow up with surgery as an outpatient. No heavy lifting, pushing or pulling for at least 4 to 6 weeks. Elevated blood pressure with new diagnosis of hypertension: Patient has been started on Norvasc 5 mg daily. Blood pressure improved. Patient may continue with Norvasc 5 mg daily at discharge. Recommend to maintain blood pressure less than 130/80. Hold medication if blood pressure systolic less than 110. Recommend follow-up with PCP as an outpatient to further address. GERD: Continue Protonix 40 mg daily. Hypothyroidism: Continue levothyroxine 75 mcg daily. DVT prophylaxis: SCD CODE STATUS: Full code Advance care [id number] minutes: Home at discharge. Time Spent Managing Pts Care (In Minutes): 55
[2021-01-24] MEDS ORDERED: PANTOPRAZOLE 40MG TABLET PO SCH (09:00)
[2021-01-24] MEDS ORDERED: AMLODIPINE 5 MG TAB PO SCH (09:00)
--- NOTE | 2021-01-24 11:52 | CON ---
Date of Consultation: 01/23/2021 Admitted with epigastric pain to Dr. Traore's service on 01/22/2021. I saw the patient on 1. Reason For Consultation: Cardiac clearance for a cholecystectomy History Of Present Illness: Ms. Morel is 75. No previous cardiac history except for history of hy pothyroidism and gastroesophageal reflux. She has hiatal hernia and history of gastritis. Came in w ith abdominal pain, nausea, and vomiting. No chest pain. Plan for cholecystectomy. I was asked to clear her. Based on her age, her EKG was unremarkable. Chest x-ray was unremarkable. No cardiac sy mptoms. I cleared the patient for surgery. Past Medical History: As stated above. Review of Systems: Negative. Social History: Negative. Family History: Negative. Medications: Include omeprazole and Synthroid. Physical Examination: Vital Signs: Stable, afebrile, sinus rhythm. HEENT: Negative. Neck: Supple with no bruit. Chest: Clear. Cardiac: Revealed a regular rhythm and rate. No murmurs, gallops, or rubs. Abdomen: Benign. Extremities: Revealed no clubbing, cyanosis, or edema. Diagnostic Data: Showed a creatinine of 1.31, hemoglobin of 11.6. Troponin was negative. BNP was 5 76. EKG was normal. X-ray was unremarkable. Impression And Plan: 1.Acute cholecystitis. 2.Hypertension. 3.Hypothyroidism. 4.Hiatal hernia. 5.Gastritis. The patient has a low risk for perioperative mortality. I will be available for [email or web address] if the need arises. [email or web address] Voice ID: [id number] Report ID: [id number]
[2021-01-24 16:04] VITALS: BP 93/42; TEMP 98.9
[2021-01-24] MEDS ORDERED: MIRTAZAPINE 15 MG TAB PO SCH (21:00)
--- NOTE | 2021-01-26 08:15 | EKG ---
Test Date: 2021-01-22 Test Time: 21:17:17 Psychology Intern: MEGGAN MEASUREMENT RESULTS: Intervals: Rate: 61 MS: 142 QRSD: 90 QT: 374 QTc: 376 [place]: P: 44 MS: 142 QRS: 34 T: 63 INTERPRETIVE STATEMENTS: Normal sinus rhythm Normal ECG Compared to ECG 01/28/2016 06:40:26 Short MS interval no longer present ST (T wave) deviation no longer present Electronically Signed On 01-26-21 08:04:36 [employer]VENTURE THERAPIST by Dwight Macedo
== END 2021-01-24 17:29 | disposition home or self-care (01) | DRG 419 ==
LOC: ER 18:58 → ERHOLD 23:44 → 2ND 01-23 14:19
PROVIDERS: ADMIT Surgery; ATTEND Surgery
PROC: BF00YZZ Plain Radiography of Bile Ducts using Other Contrast (ICD-10-PCS; 2021-01-23)
PROC: 0FT44ZZ Resection of Gallbladder, Percutaneous Endoscopic Approach (ICD-10-PCS; principal; 2021-01-23 12:30)
DX: K80.12 Calculus of gallbladder with acute and chronic cholecystitis without obstruction (principal); I10 Essential (primary) hypertension; E03.9 Hypothyroidism, unspecified; K29.70 Gastritis, unspecified, without bleeding; K21.9 Gastro-esophageal reflux disease without esophagitis; Z20.822 Contact with and (suspected) exposure to COVID-19
CPT/HCPCS: 36415; 71045; 74176; 76705; 80048; 80076; 81003; 81015; 83690; 83735; 83880; 84484; 85025; 85610; 87086; 87088; 88304; 93005; 94010; 96365; 96366; 99284; J0360; J1100; J2405; J2543; J2704; J2710; J3010; J7120; J7799; U0003

== ENCOUNTER 2021-12-01 11:11 | Emergency (ER) | payer OTHER ==
[2021-12-01] MEDS ORDERED: HYDROCODONE/APAP 10/325 TAB ONE (11:37)
[2021-12-01] MEDS ORDERED: TETANUS & DIPHTHERIA TOX,ADULT 0.5 ML VIAL ONE (11:38)
--- NOTE | 2021-12-01 11:57 | RAD REPORT ---
EXAM DESCRIPTION: CT - C Spine Wo Con - 12/01/2021 11:49 am CLINICAL HISTORY: Neck trauma COMPARISON: No comparisons TECHNIQUE: CT Scan was obtained of the cervical spine without contrast. Reformats were provided in t he sagittal and coronal plane. FINDINGS: No acute fracture of the cervical spine. No traumatic malalignment. No prevertebral edema. No significant focal degenerative changes. No suspicious thyroid nodules or lymphadenopathy. Scarrin g in the lung apices. Reversal of normal cervical lordosis which is probably related to underlying de generative changes. Disc height loss and varying degrees of neural foraminal narrowing noted IMPRESSION: No fracture or traumatic malalignment of the cervical spine.
--- NOTE | 2021-12-01 11:57 | RAD REPORT ---
EXAM DESCRIPTION: CT - Head Brain Wo Cont - 12/01/2021 11:47 am CLINICAL HISTORY: Facial trauma, blunt COMPARISON: No comparisons TECHNIQUE: All CT scans are performed using dose optimization technique as appropriate and may inclu de automated exposure control or mA/KV adjustment according to patient size. FINDINGS: No intracranial hemorrhage, hydrocephalus or extra-axial fluid collection.No areas of brai n edema or evidence of midline shift. The paranasal sinuses and mastoids are clear. The calvarium is intact. IMPRESSION: No acute intracranial abnormality.
--- NOTE | 2021-12-01 12:21 | RAD REPORT ---
EXAM DESCRIPTION: RAD - Shoulder Left 2 View - 12/01/2021 12:14 pm CLINICAL HISTORY: PAIN COMPARISON: Elbow Left 3 View dated 12/01/2021 FINDINGS/IMPRESSION: No acute fracture. No malalignment. No significant focal degenerative changes.
--- NOTE | 2021-12-01 12:21 | RAD REPORT ---
EXAM DESCRIPTION: RAD - Elbow Left 3 View - 12/01/2021 12:14 pm CLINICAL HISTORY: PAIN COMPARISON: No comparisons FINDINGS/IMPRESSION: No acute fracture. No malalignment. No significant focal degenerative changes.
--- NOTE | 2021-12-01 12:22 | RAD REPORT ---
EXAM DESCRIPTION: RAD - Wrist Left 3 View - 12/01/2021 12:14 pm CLINICAL HISTORY: PAIN COMPARISON: No comparisons FINDINGS/IMPRESSION: Distal radial impaction fracture with intra-articular extension and slight fore shortening. Distal ulnar metaphyseal and ulnar styloid fracture. Both fractures are mildly displaced.
--- NOTE | 2021-12-01 13:25 | EDPHYS ---
Physician Documentation [facility] Name: Gwendolyn Morel Age: 76 yrs Sex: Female : 1945 Arrival Date: 12/01/2021 Time: 11:15 Bed 4 Private MD: ED Physician David Bob HPI: 12/01 11:29 This 76 yrs old Female presents to ER via Unassigned with complaints of Fall Injury. jr11 11:29 Details of fall: The patient fell from a height, and struck a concrete surface. Onset: jr11 The symptoms/episode began/occurred 20 min before, slipped and fell . Associated injuries: The patient sustained Fell on to L arm . Severity of symptoms: At their worst the symptoms were severe, in the emergency department the symptoms are actually worse. Denies any other injuries aside from L upper arm pain, small laceration . Historical: - Home Meds: 11:40 levothyroxine oral [Active]; unknown sleeping pills [Active]; pantoprazole Oral jh5 [Active]; Mirtazapine Oral [Active]; - PMHx: 11:40 gastritis; stomach hernia; jh5 - Immunization history:: Adult Immunizations up to date. - Social history:: Smoking status: Patient denies any tobacco usage or history of. - Immunization history: Last tetanus immunization: unknown. ROS: 11:31 All other systems are negative. jr11 Exam: 11:31 Constitutional: This is a well developed, well nourished patient who is awake, alert, jr11 and in no acute distress. Head/Face: Normocephalic, atraumatic. Eyes: Extra-ocular motions intact. Lids and lashes normal. Conjunctiva and sclera are non-icteric and not injected. Cornea within normal limits. Periorbital areas with no swelling, redness, or edema. ENT: Nares patent. No nasal discharge, no septal abnormalities noted. Oropharynx with no redness, swelling, or masses, exudates, or evidence of obstruction, uvula midline. Mucous membranes moist. Neck: Trachea midline, no thyromegaly or masses palpated, and no cervical lymphadenopathy. Supple, full range of motion without nuchal rigidity, or vertebral point tenderness. No Meningismus. Chest/axilla: Normal chest wall appearance and motion. Nontender with no deformity. No lesions are appreciated. Cardiovascular: Regular rate and rhythm with a normal S1 and S2. No gallops, murmurs, or rubs. Normal PMI, no JVD. No pulse deficits. Respiratory: Lungs have equal breath sounds bilaterally, clear to auscultation and percussion. No rales, rhonchi or wheezes noted. No increased work of breathing, no retractions or nasal flaring. Abdomen/GI: Soft, non-tender, with normal bowel sounds. No distension or tympany. No guarding or rebound. No evidence of tenderness throughout. Back: No spinal tenderness. No costovertebral tenderness. Full range of motion. MS/ Extremity: Pulses equal, no cyanosis. Neurovascular intact. Full, normal range of motion except L wrist with deformity, estevez ROM 2/2 pain, N/V intact distally 1 cm laceration ulnar side, L shoulder L elbow estevez ROM 2/2 pain Neuro: Awake and alert, GCS 15, oriented to person, place, time, and situation. No gross motor or sensory deficits. Vital Signs: 11:39 Resp 18; Temp 98.8; Weight 49.9 kg; Height 5 ft. 2 in. (157.48 cm); Pain 10/10; jh5 11:39 Body Mass Index 20.12 (49.90 kg, 157.48 cm) jh5 Neelam Coma Score: 11:40 Eye Response: spontaneous(4). Verbal Response: oriented(5). Motor Response: obeys jh6 commands(6). Total: 15. Trauma Score (Adult): 11:45 Eye Response: spontaneous(1); Verbal Response: oriented(1); Motor Response: obeys jh6 commands(2); Systolic BP: > 89 mm Hg(4); Respiratory Rate: 10 to 29 per min(4); Neelam Score: 15; Trauma Score: 12 Procedures: 13:18 Splinting: Splint applied to left wrist using Orthoglass splint, applied by tech. [email or web address] Examined by me, post splint application: neurovascular intact, 2+ distal pulses palpable, brisk capillary refill noted, Patient tolerated well. MDM: 11:20 Patient medically screened. jr11 11:31 Differential diagnosis: abrasion, closed head injury, contusion, fracture. Data jr11 reviewed: vital signs, nurses notes. 13:18 ED course: Dr Daniels ortho accepted. jr11 09/29 11:27 Order name: Wrist Left (3 View) XRAY; Complete Time: 12:24 12/01 11:27 Order name: Elbow Left 3 View XRAY; Complete Time: 12:24 12/01 11:27 Order name: Shoulder Left (2 View) XRAY; Complete Time: 12:24 12/01 11:29 Order name: CT Head Brain wo Cont; Complete Time: 12:24 12/01 11:29 Order name: CT C Spine; Complete Time: 12:24 12/01 13:39 Order name: Sugar Tong Forearm Splint; Complete Time: 14:45 Administered Medications: 11:42 Drug: Tetanus-Diphtheria Toxoid Adult 0.5 ml {[employer] Operator Helper: [employer]. Exp: jh6 07/09/2023. Lot #: [id number]. } Route: IM; Site: right deltoid; 14:45 Follow up: Response: No adverse reaction 6 11:42 Drug: [place] (HYDROcodone-acetaminophen) 10 mg-325 mg 1 tabs Route: PO; jh6 14:45 Follow up: Response: Pain is decreased jh6 12:36 Drug: Lidocaine (1 %) 5 ml Volume: 20 ml; Route: Infiltration; 6 14:45 Follow up: Response: Pain is decreased jh6 13:52 Drug: Ancef (cefazolin) 1 grams Route: IM; Site: left deltoid; jh6 14:45 Follow up: Response: No adverse reaction 6 Disposition Summary: 12/01/21 13:24 Transfer Ordered Transfer Location: [place] [id number] Reason: Higher level of care jr11 Condition: Stable jr11 Problem: new jr11 Symptoms: are unchanged jr11 Accepting Physician: Frances(12/01/21 14:50) 6 Diagnosis - L distal radius and ulnar fracture, open jr11 Forms: - Medication Reconciliation Form jr11 - SBAR form jr11 Signatures: Dispatcher [employer] EDMS Marj Penny RN RN jh5 Pati Ahmadi RN RN jh6 David Bob MD MD jr11 Corrections: (The following items were deleted from the chart) 14:50 13:24 [facility]
--- NOTE | 2021-12-01 13:25 | ER ---
Nurse's Notes [facility] Name: Gwendolyn Morel Age: 76 yrs Sex: Female : 1945 Arrival Date: 12/01/2021 Time: 11:15 Bed 4 Private MD: Diagnosis: L distal radius and ulnar fracture, open Presentation: 12/01 11:39 Chief complaint: Patient states: fell at home on left arm, wrist appears deformed with jh5 possible open fx. Coronavirus screen: Vaccine status: Patient reports receiving the 2nd dose of the covid vaccine. Client denies travel out of the [place] in the last 14 days. Ebola Screen: Patient negative for fever greater than or equal to 101.5 degrees Fahrenheit, and additional compatible Ebola Virus Disease symptoms Patient denies exposure to infectious person. Patient denies travel to an Ebola-affected area in the 21 days before illness onset. Initial Sepsis Screen: Does the patient meet any 2 criteria? No. Patient's initial sepsis screen is negative. Does the patient have a suspected source of infection? No. Patient's initial sepsis screen is negative. Risk Assessment: Do you want to hurt yourself or someone else? Patient reports no desire to harm self or others. Onset of symptoms was December 01, 2021. 11:39 Method Of Arrival: Ambulatory [facility] 11:39 Acuity: CHIDI 2 5 11:40 Mechanism of Injury: Fall. 6 11:40 Care prior to arrival: None. Trauma event details: Injury occurred: December 01, 2021. [facility] Triage Assessment: 11:40 General: Appears in no apparent distress. uncomfortable, slender, well groomed, well jh5 developed, Behavior is calm, cooperative, appropriate for age. Pain: Complains of pain in left arm. Historical: - Home Meds: 11:40 levothyroxine oral [Active]; unknown sleeping pills [Active]; pantoprazole Oral jh5 [Active]; Mirtazapine Oral [Active]; - PMHx: 11:40 gastritis; stomach hernia; jh5 - Immunization history:: Adult Immunizations up to date. - Social history:: Smoking status: Patient denies any tobacco usage or history of. - Immunization history: Last tetanus immunization: unknown. Screenin:44 Abuse screen: Denies threats or abuse. Denies injuries from another. Tuberculosis jh6 screening: No symptoms or risk factors identified. 11:51 Nutritional screening: No deficits noted. Fall Risk Fall in past 12 months (25 points). 6 Primary Survey: 11:15 NO uncontrolled hemorrhage observed. A: The client is awake and alert. The airway is jh6 patent. The client is alert. Airway: patent, Trachea midline. 11:15 Breathing/Chest: Spontaneous respiratory effort, equal unlabored respirations, breath jh6 sounds clear bilaterally, regular pattern, symmetrical chest rise and fall. Respiratory effort: spontaneous, unlabored, Breath sounds: clear, bilaterally. Respiratory pattern: regular, Chest inspection: symmetrical rise and fall of the chest. Circulation: No external hemorrhage present. Regular and strong central pulse, skin warm/dry/normal color. Disability Pupils are equal, round, reactive to light and accommodation. Client is alert. Exposure/Environment: All clothing and personal items were removed. Forensic evidence collection is not deemed to be indicated at this time. Items placed in patient belonging bag. Obvious injury(ies) are noted at this time: swelling to l wrist with puncture type wound to lateral wrist. bleeding oozing. Reassessment. 11:30 Reassessment Breathing: Spontaneous respiratory effort, equal unlabored respirations, jh6 breath sounds clear bilaterally, regular pattern with symmetrical chest rise and fall. Assessment: 11:44 General: Appears in no apparent distress. Behavior is calm, cooperative. Pain: 6 Complains of pain in left wrist Pain currently is 8 out of 10 on a pain scale. Quality of pain is described as aching, throbbing, Pain began suddenly, Is continuous, Aggravated by increased activity, Noted to be grimacing. Musculoskeletal: Circulation, motion, and sensation intact. Capillary refill < 3 seconds, Range of motion: limited in all extremities, intact in left wrist Bony deformity noted of left wrist Swelling present in left wrist. 12:47 Reassessment: Patient and/or family updated on plan of care and expected duration. Pain jh6 level reassessed. fingers placed in finger trap and weighed applied for traction. all this after provider blocked pts wrist. 13:10 Reassessment: Patient and/or family updated on plan of care and expected duration. Pain jh6 level reassessed. Pt tolerating finger trap with weight well. reporting no pain at this time. family at bedside and call light in reach. . 14:30 Reassessment: Patient and/or family updated on plan of care and expected duration. Pain jh6 level reassessed. pt tolerated sugar tong placement well and is complaining of no pain after ortho hardened. CMS intact skin w/d. Vital Signs: 11:39 Resp 18; Temp 98.8; Weight 49.9 kg; Height 5 ft. 2 in. (157.48 cm); Pain 10/10; jh5 11:39 Body Mass Index 20.12 (49.90 kg, 157.48 cm) jh5 Neelam Coma Score: 11:40 Eye Response: spontaneous(4). Verbal Response: oriented(5). Motor Response: obeys jh6 commands(6). Total: 15. Trauma Score (Adult): 11:45 Eye Response: spontaneous(1); Verbal Response: oriented(1); Motor Response: obeys jh6 commands(2); Systolic BP: > 89 mm Hg(4); Respiratory Rate: 10 to 29 per min(4); Neelam Score: 15; Trauma Score: 12 ED Course: 11:15 Patient arrived in ED. rg4 11:18 David Bob MD is Attending Physician. jr11 11:[address] Patient moved to radiology via stretcher. jh6 11:40 Triage completed. jh5 11:40 Arm band placed on right wrist. jh5 11:40 Placed in gown. Bed in low position. Call light in reach. Side rails up X2. Adult w/ jh6 patient. 11:40 Thermoregulation: warm blanket given to patient. jh6 11:46 Dressings: Hilda x 1 left arm non-adherent dressing x 1 left arm ortho glass to l fa. jh6 11:49 CT Head Brain wo Cont In Process Unspecified. EDMS 11:50 CT C Spine In Process Unspecified. EDMS 12:16 Wrist Left (3 View) XRAY In Process Unspecified. EDMS 12:16 Elbow Left 3 View XRAY In Process Unspecified. EDMS 12:16 Shoulder Left (2 View) XRAY In Process Unspecified. EDMS 12:30 Pati Ahmadi, ROSE is Primary Nurse. jh6 14:45 Assist provider with fracture care of left arm Fracture is open. Obvious deformity is jh6 noted. Circulation, motor and sensation is intact. Performed by David Bob MD Immobilized with OCL splint, Post immobilization, circulation, motor and sensation remain intact. Patient tolerated well. Dressings: Hilda x 2 left arm non-adherent dressing x 1 left arm. Administered Medications: 11:42 Drug: Tetanus-Diphtheria Toxoid Adult 0.5 ml {Sewer Pipe Layer: Agribots. Exp: jh6 07/09/2023. Lot #: [id number]. } Route: IM; Site: right deltoid; 14:45 Follow up: Response: No adverse reaction 6 11:42 Drug: Sanger (HYDROcodone-acetaminophen) 10 mg-325 mg 1 tabs Route: PO; 6 14:45 Follow up: Response: Pain is decreased 6 12:36 Drug: Lidocaine (1 %) 5 ml Volume: 20 ml; Route: Infiltration; jh6 14:45 Follow up: Response: Pain is decreased 6 13:52 Drug: Ancef (cefazolin) 1 grams Route: IM; Site: left deltoid; 6 14:45 Follow up: Response: No adverse reaction 6 Medication: 14:49 Vaccine Information Statement (VIS) provided today. Questions and/or concerns 6 addressed. VIS edition date: December 01, 2021. Outcome: 13:24 ER care complete, transfer ordered by jr11 14:50 Patient left the ED. 6 Signatures: Dispatcher [employer] Bambi Enriquez 4 Marj Penny RN RN jh5 Pati Ahmadi RN RN jh6 David Bob MD MD jr11 Corrections: (The following items were deleted from the chart) 12:08 11:39 Acuity: CHIDI 1 Kelle jhKelle
[2021-12-01] MEDS ORDERED: CEFAZOLIN SODIUM 1 GM/VIAL ONE (13:40)
[2021-12-02 18:04] VITALS: TEMP 98.8
== END 2021-12-01 14:50 | disposition short-term general hospital (02) ==
LOC: ER 11:11
PROC: 2W3DX1Z Immobilization of Left Lower Arm using Splint (ICD-10-PCS; principal; 2021-12-01)
DX: S52.502B Unspecified fracture of the lower end of left radius, initial encounter for open fracture type I or II (principal); S52.602B Unspecified fracture of lower end of left ulna, initial encounter for open fracture type I or II; Z23 Encounter for immunization
CPT/HCPCS: 70450; 72125; 73080; 73030; 73110; 90471; 90714; 96372; 99284; 29125; J0690

== ENCOUNTER 2022-01-14 16:44 | Emergency (ER) | payer OTHER ==
--- OUTSIDE RECORDS SUMMARY | 2022-01-14 16:47 | XMS REPORT | Continuity of Care Document ---
:1945 Author Organization [facility] t Address [address] [place] [address] [address] [place] [address] Care Team Providers Name Role Phone No MD, Pcp Primary Care Physician Unavailable ASHLEY STEVENSON Attending Clinician Unavailable Payers Payer Name Policy Type Policy Number Effective Date Expiration Date S [facility] WELLMED [id number] 2020 00:00:00 Problems Condition Condition Condition Status Onset Resolution Last Treating Co mments Source Name Details Category Date Date Treatment Clinician Date No known No known Disease [facility] active active Health problems problems Allergies, Adverse Reactions, Alerts This patient has no known allergies or adverse reactions. Social History Social Habit Start Date Stop Date Quantity Comments Source Tobacco use and 2021-12-21 2021-12-21 Smokeless tobacco [facility] exposure 00:00:00 00:00:00 non-user Alcohol intake 2021-12-21 2021-12-21 Lifetime [facility] 00:00:00 00:00:00 non-drinker (finding) Exposure to 2021-12-02 2021-12-12 Not sure [facility] SARS-CoV-2 (event) 00:00:00 08:37:00 Sex Ass[birth year] [facility] 00:00:00 00:00:00 Smoking Status Start Date Stop Date Source Never smoked tobacco [facility] Medications Ordered Filled Start Stop Current Ordering Indication Dosage Frequency Signature Comments Components Source Medication Medication Date Date Medication? Clinician (SIG) Name Name megestrol Yes 625mg Take 625 [facility] (Megace ES) 8-25 mg by [facility] 625 MG/5ML 00:00: mouth. suspension 00 pantoprazol Yes 40mg Take 40 mg [facility] e 8-25 by mouth 1 Health (ProtoNix) 00:00: (one) time 40 MG EC 00 each day tablet before breakfast. DO NOT CRUSH CHEW OR SPLIT mirtazapine Yes 15mg Take 15 mg [facility] (Remeron 8-25 by mouth Health Jeanine-Tab) 15 00:00: every MG 00 night. disintegrat ing tablet levothyroxi Yes 50ug QD Take 50 [facility] ne 8-20 mcg by [facility] (Synthroid, 00:00: mouth 1 Levoxyl) 50 00 (one) time MCG tablet each day. Vital Signs Vital Name Observation Time Observation Value Comments Source Body height 2021-12-21 20:00:00 157.5 cm [facility] Body weight 2021-12-21 20:00:00 49.896 kg [facility] BMI 2021-12-21 20:00:00 20.12 kg/m2 [facility] Procedures Procedure Date / Time Performed Performing Clinician Sour e CAST APPLICATION 2021-12-21 21:50:50 Ashley Stevenson [facility] Encounters Start End Encounter Admission Attending Care Care Encounter Source Date/Time Date/Time Type Type Clinicians Facility Department ID 2021-12-21 Outpatient [facility] [id number] [place] 14:48:14 [id number] [facility] 2021-12-12 Outpatient [facility] [id number] [place] 08:34:40 [id number] [facility] 2022-01-18 2022-01-18 Outpatient GRAHAM [facility] [id number] [place] 08:45:00 08:45:00 ASHLEY [facility] 2021-12-21 2021-12-21 Outpatient [facility] [id number] [place] 00:00:00 16:13:33 [facility] 2021-12-21 2021-12-21 Office STAN Stevenson 6400 [id number] [place] 15:15:00 16:10:16 Visit Ashley MERCER [id number] [facility] [id number] Results This patient has no known results.
[2022-01-14 18:10] LABS: Absolute Lymphocytes (CBC) 0.5 K/uL (0.7-4.9); Hematocrit 32.9 % (36.0-45.0); Lymphocytes % 8.1 % (15.3-44.8); MCV 85.2 fL (80-100); MPV 7.2 fL (7.6-11.3); RBC Red Blood Cell Count 3.86 M/uL (3.86-4.86)
--- NOTE | 2022-01-14 18:20 | RAD REPORT ---
EXAM DESCRIPTION: RAD - Chest Single View - 01/14/2022 6:13 pm CLINICAL HISTORY: Cough COMPARISON: Chest Single View dated 01/22/2021; Chest Single View dated 01/27/2016 FINDINGS: Lines: None. Lungs: New mild right basilar airspace disease. Pleural: No significant pleural effusions or pneumothorax. Cardiac: The heart size is within normal limits. Mediastinum: Within normal limits. Bones: No acute fractures. Other: None IMPRESSION: Right basilar airspace disease could reflect pneumonia.
[2022-01-14 18:22] LABS: ALT/SGPT 50 U/L (12-78); Albumin 2.9 g/dL (3.4-5.0); Alkaline Phosphatase 139 U/L (45-117); BUN Blood Urea Nitrogen 23 mg/dL (7-18); Bicarbonate 22 mmol/L (21-32); Bilirubin Total 0.4 mg/dL (0.2-1.0); Glomerular Filtration Rate 31 ml/min (=/>90); Glucose Level 101 mg/dL (74-106); NT PRO-BNP 1969 pg/mL (<450); Protein, Total 8.2 g/dL (6.4-8.2); Sodium Level 134 mmol/L (136-145); Troponin High Sensitivity 11.8 pg/mL (<58.9)
[2022-01-14 18:23] LABS: AST/SGOT 84 U/L (15-37); Bilirubin Direct < 0.1 mg/dL (0-0.2); Potassium 4.6 mmol/L (3.5-5.1)
[2022-01-14 18:24] LABS: SARS-COV-2 RT PCR NEGATIVE (NEGATIVE)
[2022-01-14] MEDS ORDERED: CEFTRIAXONE 1000 MG/VIAL ONE (19:07)
[2022-01-14] MEDS ORDERED: AZITHROMYCIN 500 MG INJ IVPB ONE (19:07)
[2022-01-14] MEDS ORDERED: NA CHLORIDE 0.9% 50 ML IV ONE (19:07)
[2022-01-14] MEDS ORDERED: NA CHLORIDE 0.9% 250 ML ONE (19:08)
[2022-01-14] MEDS ORDERED: NA CHLORIDE 0.9% 0 ML ONE (19:08)
[2022-01-14] MEDS ORDERED: NA CHLORIDE 0.9% 500 ML ONE (19:11)
[2022-01-14] MEDS ORDERED: OSELTAMIVIR 75 MG CAP ONE (19:36)
[2022-01-14 20:01] LABS: Urine Blood 3+ (Negative); Urine Glucose Negative (Negative); Urine Protein 1+ (Negative); Urine Specific Gravity 1.025 (1.005-1.030); Urine pH 5.5 (5.0-7.0)
[2022-01-14 20:17] LABS: Urine Bacteria <20 /HPF (<20); Urine Mucus Slight /HPF (None Seen); Urine RBC 21-50 /HPF (None Seen)
--- NOTE | 2022-01-14 21:11 | ER ---
Nurse's Notes [facility] Name: Gwendolyn Morel Age: 76 yrs Sex: Female : 1945 Arrival Date: 01/14/2022 Time: 16:48 Bed 25 Private MD: Diagnosis: Influenza due to identified novel influenza A virus with other manifestations;Nausea with vomiting, unspecified;Pneumonia, unspecified organism Presentation: 01/14 16:43 Chief complaint: EMS states: tones out to PT home for flu-like symptoms. Family states tp1 PT has fever, nausea, and weakness. EMS states initial BP was 211/111 and T 103.5, family stated they were giving PT medication from [place], but would not send with EMS. EMS inserted 2020 G to the R wrist, administered Tylenol 1G X1 and Reglan 10mg X1. EMS reported second set of vitals BP 157/87, HR 100, T 103.3. 16:43 Ebola Screen: Patient denies exposure to infectious person. Patient denies travel to an tp1 Ebola-affected area in the 21 days before illness onset. Initial Sepsis Screen: Does the patient meet any 2 criteria? Temp <36.0*C (96.8*F)) or > 38.3*C (100.9*F). HR > 90 bpm. Does the patient have a suspected source of infection? Yes: Other: flu. Risk Assessment: Do you want to hurt yourself or someone else? Patient reports no desire to harm self or others. Onset of symptoms was January 14, 2022. 16:43 Method Of Arrival: EMS: [facility] tp1 16:43 Acuity: CHIDI 3 tp1 17:01 Coronavirus screen: Vaccine status: Patient reports receiving the 2nd dose of the covid tp1 vaccine. Triage Assessment: 17:01 General: Appears in no apparent distress. uncomfortable, Behavior is calm, cooperative. tp1 Pain: Denies pain. EENT: No signs and/or symptoms were reported regarding the EENT system. Neuro: Level of Consciousness is awake, alert, obeys commands, Oriented to person, place, time, situation. Neuro: Reports weakness. Cardiovascular: Patient's skin is warm and dry. Cardiovascular: Respiratory: Airway is patent Respiratory effort is even, unlabored. GI: Abdomen is flat, non-distended, Abd is soft and non tender Reports nausea, Patient currently denies diarrhea, vomiting. GI: Reports anorexia. : No signs and/or symptoms were reported regarding the genitourinary system. Derm: Skin is pink, warm \T\ dry. Musculoskeletal: Circulation, motion, and sensation intact. Historical: - Allergies: 16:58 No Known Allergies; tp1 - PMHx: 16:58 gastritis; stomach hernia; depression; GERD; Hypothyroidism; tp1 - PSHx: 16:58 Cholecystectomy; tp1 - Immunization history:: Client reports receiving the 2nd dose of the Covid vaccine. - Social history:: Smoking status: Patient denies any tobacco usage or history of. Screenin:16 Abuse screen: Denies threats or abuse. Denies injuries from another. Nutritional tp1 screening: No deficits noted. Tuberculosis screening: No symptoms or risk factors identified. Fall Risk Fall in past 12 months (25 points). No secondary diagnosis (0 pts). IV access (20 points). Ambulatory Aid- None/Bed Rest/Nurse Assist (0 pts). Gait- Weak (10 pts.). Mental Status- Oriented to own ability (0 pts). Total Vo Fall Scale indicates High Risk Score (45 or more points). Fall prevention measures have been instituted. Side Rails Up X 2 Placed Close to Nursing Station Frequent Obs/Assessments Occuring Family Present and informed to notify staff if the need to leave the bedside As available patient and family educated on Fall Prevention Program and Strategies. Assessment: 17:04 Reassessment: see triage assessment. tp1 18:15 Reassessment: Patient appears in no apparent distress at this time. No changes from tp1 previously documented assessment. Patient and/or family updated on plan of care and expected duration. Pain level reassessed. Patient is alert, oriented x 3, equal unlabored respirations, skin warm/dry/pink. Patient denies pain at this time. 19:15 Reassessment: Patient appears in no apparent distress at this time. No changes from tp1 previously documented assessment. Patient and/or family updated on plan of care and expected duration. Pain level reassessed. Patient is alert, oriented x 3, equal unlabored respirations, skin warm/dry/pink. Patient denies pain at this time. 20:02 Reassessment: Patient appears in no apparent distress at this time. No changes from tp1 previously documented assessment. Patient is alert, oriented x 3, equal unlabored respirations, skin warm/dry/pink. resting in bed with family at bedside. Patient denies pain at this time. 21:04 Reassessment: Patient appears in no apparent distress at this time. No changes from tp1 previously documented assessment. Patient is alert, oriented x 3, equal unlabored respirations, skin warm/dry/pink. Patient denies pain at this time. Vital Signs: 16:53 BP 163 / 86; Pulse 104; Resp 16; Temp 100.2(O); Pulse Ox 96% on R/A; tp1 17:01 Weight 49.9 kg; Height 5 ft. 2 in. (157.48 cm); tp1 18:00 BP 133 / 83; Pulse 103; Resp 20; Pulse Ox 98% on R/A; tp1 19:00 BP 128 / 70; Pulse 93; Resp 18; Pulse Ox 98% on R/A; tp1 20:00 BP 159 / 85; Pulse 89; Resp 15; Pulse Ox 98% on R/A; tp1 21:05 BP 148 / 70; Pulse 77; Resp 15; Temp 98.8(O); Pulse Ox 98% on R/A; tp1 17:01 Body Mass Index 20.12 (49.90 kg, 157.48 cm) tp1 ED Course: 16:48 Patient arrived in ED. tp1 16:48 Desirae Hdz, ROSE is Primary Nurse. tp1 16:50 [facility] cp 16:50 Marcy Bhat MD is Attending Physician. cp 16:58 Triage completed. tp1 17:00 Bed in low position. Call light in reach. Side rails up X2. tp1 17:00 Client placed on continuous cardiac and pulse oximetry monitoring. NIBP monitoring tp1 applied. 17:01 Arm band placed on. tp1 17:54 Maintain EMS IV. Dressing intact. Good blood return noted. Site clean \T\ dry. Gauge \T\ tp 1 site: 20 G r wrist . 17:54 No provider procedures requiring assistance completed. Inserted saline lock: 22 gauge tp1 in right antecubital area, using aseptic technique. Blood collected. 18:15 XRAY Chest (1 view) In Process Unspecified. EDMS 20:01 Straight cath inserted, using sterile technique, 16 Fr. Specimen obtained. Patient tp1 tolerated well. 21:30 IV discontinued, intact, bleeding controlled, No redness/swelling at site. Pressure tp1 dressing applied. Administered Medications: 17:44 Drug: Zithromax (azithromycin) 500 mg Route: IVPB; Infused Over: 1 hrs; Site: right tp1 antecubital; 20:46 Follow up: Response: No adverse reaction; IV Status: Completed infusion; IV Intake: tp1 250ml 19:05 Not Given (Physician Discretion): NS 0.9% 500 ml IV at 500 ml/hr continuous cp 19:18 Drug: Rocephin - (cefTRIAXone) 1 grams Route: IVPB; Infused Over: 30 mins; Site: right tp1 wrist; 19:56 Follow up: Response: No adverse reaction; IV Status: Completed infusion; IV Intake: [id number] 19:20 Drug: NS 0.9% 250 ml Route: IV; Rate: bolus; Site: right wrist; tp1 19:56 Follow up: IV Status: Completed infusion; IV Intake: 250ml tp1 19:56 Drug: Tamiflu (oseltamivir) 75 mg Route: PO; tp1 21:31 Follow up: Response: No adverse reaction tp1 Medication: 20:16 VIS not applicable for this client. tp1 Intake: 19:56 IV: 250ml; Total: 250ml. tp1 19:56 IV: 50ml; Total: 300ml. tp1 20:46 IV: 250ml; Total: 550ml. tp1 Outcome: 21:10 Discharge ordered by MD. cp 21:31 Discharged to home via wheelchair, with family. tp1 21:31 Condition: good 21:31 Discharge instructions given to patient, family, Instructed on discharge instructions, follow up and referral plans. medication usage, Demonstrated understanding of instructions, follow-up care, medications, Prescriptions given X 3. 21:31 Patient left the ED. tp1 Signatures: Dispatcher [employer] EDGA John Pepe PA PA cp Parker, Tiffany, RN RN tp1 Corrections: (The following items were deleted from the chart) 17:01 16:43 Coronavirus screen: Vaccine status: Patient reports being unvaccinated. tp1 tp1 20:02 20:01 Reassessment: Patient appears in no apparent distress at this time. No changes tp1 from previously documented assessment. Patient and/or family updated on plan of care and expected duration. Pain level reassessed. Patient is alert, oriented x 3, equal unlabored respirations, skin warm/dry/pink. Patient denies pain at this time. tp1
--- NOTE | 2022-01-14 21:11 | EDPHYS ---
Physician Documentation [facility] Name: Gwendolyn Morel Age: 76 yrs Sex: Female : 1945 Arrival Date: 01/14/2022 Time: 16:48 Bed 25 Private MD: ED Physician Marcy Bhat HPI: 01/14 16:55 This 76 yrs old Female presents to ER via Unassigned with complaints of Flu Symptoms. cp 16:55 The patient reports fever, that was measured at 103.3 degrees Fahrenheit. Onset: The cp symptoms/episode began/occurred today. Associated signs and symptoms: Pertinent positives: cough, nausea, vomiting, general weakness times 2 days, Pertinent negatives: abdominal pain, chest pain, focal weakness. Severity of symptoms: in the emergency department the symptoms have improved EMS administered 10 mg Reglan for nausea and 1000 mg acetaminophen for fever. 17:00 Daughter reports patient became weak at home in the restroom, causing her to fall. No cp injuries sustained. Historical: - Allergies: 16:58 No Known Allergies; tp1 - PMHx: 16:58 gastritis; stomach hernia; depression; GERD; Hypothyroidism; tp1 - PSHx: 16:58 Cholecystectomy; tp1 - Immunization history:: Client reports receiving the 2nd dose of the Covid vaccine. - Social history:: Smoking status: Patient denies any tobacco usage or history of. ROS: 17:00 Constitutional: Positive for body aches, fever, Negative for poor PO intake. cp 17:00 Eyes: Negative for injury, pain, redness, and discharge. cp 17:00 ENT: Negative for drainage from ear(s), ear pain, difficulty swallowing, difficulty handling secretions. 17:00 Cardiovascular: Negative for chest pain, palpitations. 17:00 Respiratory: Positive for cough, Negative for shortness of breath, wheezing. 17:00 Abdomen/GI: Positive for nausea and vomiting, Negative for abdominal pain, diarrhea, constipation. 17:00 : Negative for urinary symptoms. 17:00 Skin: Negative for rash. 17:00 Neuro: Positive for weakness, Negative for altered mental status, headache, syncope. 17:00 All other systems are negative. Exam: 17:05 Constitutional: The patient appears in no acute distress, alert, awake, cp non-diaphoretic, non-toxic, well developed, well nourished. 17:05 Head/Face: Normocephalic, atraumatic. cp 17:05 Eyes: Periorbital structures: appear normal, Conjunctiva: normal, no exudate, no injection, Sclera: no appreciated abnormality, Lids and lashes: appear normal, bilaterally. 17:05 ENT: External ear(s): are unremarkable, Nose: is normal, Mouth: Lips: moist, Oral mucosa: moist, Posterior pharynx: Airway: no evidence of obstruction, patent, Tonsils: no enlargement, no exudate, swelling, is not appreciated, erythema, that is mild, exudate, is not appreciated. 17:05 Neck: ROM/movement: is normal, is supple, without pain, no range of motions limitations, no meningismus. 17:05 Chest/axilla: Inspection: normal. 17:05 Cardiovascular: Rate: tachycardic, Rhythm: regular, Edema: is not appreciated, JVD: is not appreciated. 17:05 Respiratory: the patient does not display signs of respiratory distress, Respirations: normal, no use of accessory muscles, no retractions, labored breathing, is not present, Breath sounds: bronchial sounds, that are mild, are heard diffusely, decreased breath sounds, are not appreciated, stridor, is not appreciated, wheezing: is not appreciated. 17:05 Abdomen/GI: Inspection: abdomen appears normal, Bowel sounds: active, all quadrants, Palpation: abdomen is soft and non-tender, in all quadrants. 17:05 Back: pain, is absent, ROM is normal. 17:05 Musculoskeletal/extremity: Exam is negative for decreased range of motion, deformity, injury. 17:05 Skin: cellulitis, is not appreciated, no rash present. 17:05 Neuro: Orientation: to person, place \\T\\ time. Mentation: is normal, Motor: moves all fours, strength is normal, Sensation: is normal. Vital Signs: 16:53 BP 163 / 86; Pulse 104; Resp 16; Temp 100.2(O); Pulse Ox 96% on R/A; tp1 17:01 Weight 49.9 kg; Height 5 ft. 2 in. (157.48 cm); tp1 18:00 BP 133 / 83; Pulse 103; Resp 20; Pulse Ox 98% on R/A; tp1 19:00 BP 128 / 70; Pulse 93; Resp 18; Pulse Ox 98% on R/A; tp1 20:00 BP 159 / 85; Pulse 89; Resp 15; Pulse Ox 98% on R/A; tp1 21:05 BP 148 / 70; Pulse 77; Resp 15; Temp 98.8(O); Pulse Ox 98% on R/A; tp1 17:01 Body Mass Index 20.12 (49.90 kg, 157.48 cm) tp1 MDM: 16:50 Patient medically screened. cp 21:10 Data reviewed: vital signs, nurses notes, lab test result(s), EKG, radiologic studies, cp plain films. 21:10 Test interpretation: by ED physician or midlevel provider: ECG, plain radiologic cp studies. Counseling: I had a detailed discussion with the patient and/or guardian regarding: the historical points, exam findings, and any diagnostic results supporting the discharge/admit diagnosis, lab results, radiology results, to return to the emergency department if symptoms worsen or persist or if there are any questions or concerns that arise at home. Response to treatment: the patient's symptoms have markedly improved after treatment. ED course: VSS. Patient appears non-toxic and no signs of respiratory distress. Will discharge to home for continued monitoring. 01/14 16:55 Order name: COVID-19/FLU A+B (Document "Date of Onset" if Symptomatic); Complete Time: cp 19:02 01/14 19:04 Interpretation: INFLUENZA A POSITIVE; Reviewed. 01/14 16:55 Order name: Basic Metabolic Panel; Complete Time: 19:02 01/14 19:03 Interpretation: Normal except: NA 134; BUN 23; CRE 1.69; GFR 31. 01/14 16:55 Order name: CBC with Diff; Complete Time: 18:21 11 18:21 Interpretation: Normal except: HGB 10.8; HCT 32.9; MPV 7.2; GERSON% 81.5; LYM% 8.1; LYMA cp 0.5. 01/14 16:55 Order name: LFT's; Complete Time: 19:02 01/14 19:03 Interpretation: Normal except: AST 84; ALK 139; ALB 2.9; GLOB 5.3; A/G 0.5. 01/14 16:55 Order name: Magnesium; Complete Time: 19:02 01/14 16:55 Order name: NT PRO-BNP; Complete Time: 19:02 01/14 19:03 Interpretation: Abnormal: NT PRO-BNP 1969. 01/14 16:55 Order name: Troponin HS; Complete Time: 19:02 01/14 16:55 Order name: Urine Microscopic Only; Complete Time: 20:41 01/14 21:09 Interpretation: Normal except: URBC 21-50. 01/14 16:55 Order name: Lactate; Complete Time: 19:02 01/14 19:04 Interpretation: Reviewed. 01/14 16:55 Order name: Procalcitonin; Complete Time: 19:02 01/14 19:03 Interpretation: Abnormal: Procalcitonin 0.15. 01/14 16:55 Order name: Blood Culture Adult (2) 01/14 16:55 Order name: Strep; Complete Time: 18:21 01/14 18:22 Interpretation: Reviewed. 01/14 17:44 Order name: Throat Culture EDAR 01/14 20:02 Order name: Urine Dipstick-Ancillary; Complete Time: 20:41 [facility] 01/14 16:55 Order name: XRAY Chest (1 view); Complete Time: 18:22 01/14 18:21 Interpretation: Report review. 01/14 16:55 Order name: EKG; Complete Time: 16:56 01/14 16:55 Order name: Cardiac monitoring; Complete Time: 17:12 01/14 16:55 Order name: EKG - Nurse/Tech; Complete Time: 17:54 01/14 16:55 Order name: IV Saline Lock; Complete Time: 17:54 01/14 16:55 Order name: Labs collected and sent; Complete Time: 17:54 01/14 16:55 Order name: O2 Per Protocol; Complete Time: 17:12 01/14 16:55 Order name: O2 Sat Monitoring; Complete Time: 17:12 01/14 16:55 Order name: Urine Dipstick-Ancillary (obtain specimen); Complete Time: 20:01 01/14 18:24 Order name: Cath; Complete Time: 19:56 cp Administered Medications: 17:44 Drug: Zithromax (azithromycin) 500 mg Route: IVPB; Infused Over: 1 hrs; Site: right tp1 antecubital; 20:46 Follow up: Response: No adverse reaction; IV Status: Completed infusion; IV Intake: tp1 250ml 19:05 Not Given (Physician Discretion): NS 0.9% 500 ml IV at 500 ml/hr continuous cp 19:18 Drug: Rocephin - (cefTRIAXone) 1 grams Route: IVPB; Infused Over: 30 mins; Site: right tp1 wrist; 19:56 Follow up: Response: No adverse reaction; IV Status: Completed infusion; IV Intake: [id number] 19:20 Drug: NS 0.9% 250 ml Route: IV; Rate: bolus; Site: right wrist; tp1 19:56 Follow up: IV Status: Completed infusion; IV Intake: 250ml tp1 19:56 Drug: Tamiflu (oseltamivir) 75 mg Route: PO; tp1 21:31 Follow up: Response: No adverse reaction tp1 Disposition Summary: 01/14/22 21:10 Discharge Ordered Location: Home cp Problem: new cp Symptoms: have improved cp Condition: Stable cp Diagnosis - Influenza due to identified novel influenza A virus with other manifestations cp - Nausea with vomiting, unspecified cp - Pneumonia, unspecified organism cp Followup: cp - With: Private Physician - When: 2 - 3 days - Reason: Recheck today's complaints Discharge Instructions: - Discharge Summary Sheet cp - Influenza, Adult cp - Nausea and Vomiting, Adult cp - Community-Acquired Pneumonia, Adult cp Forms: - Medication Reconciliation Form cp - Thank You Letter cp - Antibiotic Education cp - Prescription Opioid Use cp Prescriptions: - Zofran 4 mg Oral Tablet - take 1 tablet by ORAL route every 12 hours As needed; 20 tablet; Refills: 0, cp Product Selection Permitted - Zithromax Z-Cayetano 250 mg Oral Tablet - take 1 tablet by ORAL route as directed for 5 days Day 1 - take two (2) tablets cp one time. Day 2, 3, 4 , 5 take one (1) tablet once daily.; 6 tablet; Refills: 0, Product Selection Permitted - Tamiflu 75 mg Oral Capsule - take 1 tablet by ORAL route every 12 hours for 5 days; 10 tablet; Refills: 0, cp Product Selection Permitted Signatures: Dispatcher [employer] EDHunter Jamil, AGUSTINA-C [employer]IST-[employer] John Pepe PA PA cp Parker, Tiffany, RN RN tp1 Corrections: (The following items were deleted from the chart) 19:04 19:03 Reviewed. cp cp 01/15 17:58 11 16:56 Given Reglan 10 mg and 1000 mg Tylenol by EMS prior to arrival. cp cp
[2022-01-14 22:21] VITALS: O2SAT 98
[2022-01-14 22:25] VITALS: BP 148/70; TEMP 98.8
--- NOTE | 2022-01-16 15:10 | EKG ---
Test Date: 2022-01-14 Test Time: 17:21:17 Quality Control Lead: TP MEASUREMENT RESULTS: Intervals: Rate: 102 NV: 132 QRSD: 98 QT: 338 QTc: 440 [place]: P: 46 NV: 132 QRS: 55 T: 79 INTERPRETIVE STATEMENTS: Sinus tachycardia with occasional premature ventricular complexes Anterior infarct, age undetermined Abnormal ECG Compared to ECG 01/22/2021 21:17:17 Ventricular premature complex(es) now present Myocardial infarct finding now present Sinus rhythm no longer present Electronically Signed On 01-16-22 15:09:19 [employer]ORD by Kenneth Huertas
== END 2022-01-14 21:31 | disposition home or self-care (01) ==
LOC: ER 16:44
DX: J10.00 Influenza due to other identified influenza virus with unspecified type of pneumonia (principal); R11.2 Nausea with vomiting, unspecified; Z20.822 Contact with and (suspected) exposure to COVID-19; E03.9 Hypothyroidism, unspecified
CPT/HCPCS: 93005; 87040 ×2; 87070; 85025; 80048; 36415; 83735; 80076; 87081; 83605; 84484; 84145; 83880; 0240U; 71045; 51702; 99284; J0456; J7050; J7040; 81003; 81015; J7030